=== PATIENT | female | born 1975 | race Caucasian/White ===

== ENCOUNTER 2020-12-18 12:18 | Inpatient (IN) | payer BC ==
[~2020-12-18] VITALS: Ht 165.1 cm; Wt 95.5 kg
[~2020-12-18 12:18] MED LIST: LIDOcaine 2% 5ml jelly ONE; etomidate 2mg/ml inj. ONE; rocuronium 10mg/ml inj IV ONE; sod chloride 0.9% 10ml flush syringe IV ONE
[2020-12-18] MEDS ORDERED: dexamethasone inj 8 MG in normal saline 50ml IV soln 50 ML IV STA (12:32)
[2020-12-18] MEDS ORDERED: ALBUTEROL INHALER 1 PUFF/90 MCG INHALER IH PRN ×2 (12:35→14:45)
[2020-12-18] MEDS ORDERED: normal saline 1000ML IV soln IV ONE (12:35)
[2020-12-18] MEDS ORDERED: CefTRIAXone 2gm/D5W 50ml BAG 50 ML IV ONE (12:35)
[2020-12-18 12:57] LABS: ABG BASE EXCESS -1.2 mmol/L (-2.0-2.0); ABG OXYGEN SATURATION 95.2 % (94-97); ABG PCO2 (T) 32.7 mmHg (32.0-45.0); ABG PO2 (T) 76.4 mmHg (75.0-100.0); ALLEN'S TEST POSITIVE; FCOHb 0.4 % (0.0-3.9); FLOW 4 L/min; FMetHb 0.1 % (0.0-1.5); FO2Hb 94.7 % (94-97); PATIENT TEMPERATURE 37.1; TOTAL HEMOGLOBIN 13.7 G/dl (12.0-16.0)
--- NOTE | 2020-12-18 13:29 | NUR ---
CHOLO OBTAINED AND RESULTS GIVEN TO MEE STERN. PER JARRED Addendum: 12/18/20 at 1330 by SDAY PER JARRED, GIVE ALBUTEROL MDI. POST TX TURN PT DOWN TO RA TO ASSESS OXYGENATION. PT TURNED DOWN TO RA WITH SPO2 FROM 90-92%. PLACED BACK ON 2LPM PRIOR TO LEAVING ROOM. PT SPO2 IS 92% ON 2LPM. PT TOLERATED TX WELL. NO SIGNS OF DISTRESS.
[2020-12-18 13:45] LABS: BASOPHILS % (AUTO) 0.2 % (0-1); EOSINOPHILS % (AUTO) 0 % (0-6); HEMATOCRIT 38.5 % (35.0-45.0); HEMOGLOBIN 13.1 g/dl (12.0-16.0); LYMPHOCYTES # (AUTO) 0.3 X10'3 (1.1-4.8); MEAN CORPUSCULAR HEMOGLOBIN 30.4 PG (27.0-31.0); MEAN CORPUSCULAR VOLUME 89.4 FL (78-98); MEAN PLATELET VOLUME 8.3 FL (7.4-10.4); MONOCYTES # (AUTO) 0.3 X10'3 (0-0.9); MONOCYTES % (AUTO) 4.7 % (2-12); NEUTROPHILS # (AUTO) 5.8 X10'3 (1.8-7.7); NEUTROPHILS % (AUTO) 91.1 % (42-75); PLATELET COUNT 189 X10'3 (140-440); RED CELL DISTRIBUTION WIDTH 14.6 % (11.5-14.5); WHITE BLOOD COUNT 6.4 X10'3 (4.5-11.0)
[2020-12-18 13:56] LABS: ALANINE AMINOTRANSFERASE 32 U/L (12-78); ALBUMIN 2.5 G/DL (3.4-5.0); ALBUMIN/GLOBULIN RATIO 0.6 (1.1-1.5); ALKALINE PHOSPHATASE 59 IU/L (46-116); ANION GAP 12 (8-16); ASPARTATE AMINO TRANSFERASE 31 U/L (10-37); BILIRUBIN,TOTAL 0.3 MG/DL (0.1-1.0); BLOOD UREA NITROGEN 8 MG/DL (7-18); BUN/CREATININE RATIO 12.1 (6.6-38.0); CALCIUM 7.6 MG/DL (8.5-10.1); CHLORIDE 101 MMOL/L (99-107); CREATININE 0.66 MG/DL (0.40-0.90); GLUCOSE 129 MG/DL (70-104); POTASSIUM 3.2 MMOL/L (3.5-5.1); SODIUM 135 MMOL/L (135-145); TOTAL CARBON DIOXIDE 21.8 MMOL/L (24-32); TOTAL PROTEIN 6.6 G/DL (6.4-8.2); eGFR > 90 ML/MIN
[2020-12-18 14:09] LABS: C-REACTIVE PROTEIN 9.54 MG/DL (0.0-0.5); FERRITIN 173 NG/ML (8-252)
[2020-12-18] MEDS ORDERED: proCHLORperazine 10 MG/2 ml inj IV ONE (14:10)
[2020-12-18] MEDS ORDERED: ketorolac trometh. 30mg/ml inj. IV ONE (14:10)
[2020-12-18] MEDS ORDERED: LORazepam 2 mg/ml vial IV ONE (14:10)
--- NOTE | 2020-12-18 14:43 | NUR ---
PT UP TO BEDSIDE COMMODE, SP02 DECREASED TO 86-92% ON RA. PATIENT HELPED BACK TO BED AND 2L NC PLACED. JARRED COLBERT
[2020-12-18] MEDS ORDERED: magnesium 4gm in 100ml NS 100 ML IV PRN (14:45)
[2020-12-18] MEDS ORDERED: potassium Cl 40MEQ/1/2NS 520ml 520 ML IV PRN ×2 (14:45)
[2020-12-18] MEDS ORDERED: magnesium 2GM in 50ml NS 50 ML IV PRN (14:45)
[2020-12-18] MEDS ORDERED: magnesium hydroxide 30ml (MOM) UD suspension PO PRN (14:45)
[2020-12-18] MEDS ORDERED: HYDROcodone/acetaminophen 10/325mg tab PO PRN (14:45)
[2020-12-18] MEDS ORDERED: potassium Cl 20 mEq SR tablet PO PRN (14:45)
[2020-12-18] MEDS ORDERED: REMDESIVIR (EUA) 100mg inj. 200 MG in normal saline 100ml IV soln 100 ML IV ONE (14:45)
[2020-12-18] MEDS ORDERED: acetaminophen 325mg tablet PO PRN ×2 (14:45)
[2020-12-18] MEDS ORDERED: mag hydrox/Alum hydrox/simeth 30ml oral suspension PO PRN (14:45)
[2020-12-18] MEDS: normal saline 1000ml 1,000 ML IV SCH ×2 (15:00→17:12)
[2020-12-18 15:20] LABS: D-DIMER 0.41 MG/L FEU (0-0.50)
[2020-12-18] MEDS ORDERED: BACL20TA7 PO (15:56)
[2020-12-18] MEDS ORDERED: CYCL-1 PO (15:56)
[2020-12-18] MEDS ORDERED: TOPI25TA49 PO (15:56)
[2020-12-18] MEDS ORDERED: DULO60CA65 PO (15:56)
[2020-12-18] MEDS ORDERED: ZOLM5TAB PO (15:56)
[2020-12-18] MEDS ORDERED: VALA500T41 PO (15:56)
[2020-12-18] MEDS ORDERED: GALC120P SQ (15:56)
[2020-12-18] MEDS ORDERED: BUPR300T86 PO (15:56)
[2020-12-18] MEDS ORDERED: cyclobenzaprine 10mg tablet PO PRN (16:25)
[2020-12-18] MEDS ORDERED: SUMAtriptan 25 MG tablet PO PRN (16:25)
[2020-12-18] MEDS ORDERED: baclofen 10mg tablet PO PRN (16:25)
--- NOTE | 2020-12-18 17:07 | NUR ---
received pt via karly to 341 placed in contact and airborne ISo fo +covid. report received from Luz Maria in ED. Call light in reach, bed low.
[2020-12-18 17:42] VITALS: BP 115/60
--- NOTE | 2020-12-18 18:37 | NUR ---
Problems reprioritized. Patient report given, questions answered & plan of care reviewed with LURDES Monson.
--- NOTE | 2020-12-18 18:39 | NUR ---
Patient in room [facility] 341. I have received report from Michelle CHATMAN and had the opportunity to ask questions and assume patient care.
[2020-12-18] MEDS: topiramate 100mg tablet PO SCH (19:47)
[2020-12-18] MEDS: K and/or MAG REPLACEMENT MC SCH (19:48)
[2020-12-18 20:00] VITALS: BP 117/72
[2020-12-18] MEDS ORDERED: enoxaparin 40mg/0.4ml syringe SQ SCH (20:00)
[2020-12-18] MEDS: potassium Cl 20 mEq SR tablet PO PRN (20:04)
[2020-12-19] VITALS (19 sets, daily range): BP systolic 91–125; BP diastolic 54–72
[2020-12-19] MEDS: potassium Cl 20 mEq SR tablet PO PRN ×4 (02:22→20:42)
[2020-12-19] MEDS: ondansetron/PF 4mg/2ml inj IV PRN (02:25)
--- NOTE | 2020-12-19 02:54 | NUR ---
Pt placed on salter high flow nasal cannula at 15lpm. Spo2 improved to 91%. MDI given by Will cont to monitor pt Addendum: 12/19/20 at 0254 by Gladys Guajardo RT Amended: Links added.
[2020-12-19 06:06] LABS: BASOPHILS % (AUTO) 0.1 % (0-1); EOSINOPHILS % (AUTO) 0 % (0-6); HEMATOCRIT 34.3 % (35.0-45.0); HEMOGLOBIN 11.5 g/dl (12.0-16.0); LYMPHOCYTES # (AUTO) 0.3 X10'3 (1.1-4.8); LYMPHOCYTES % (AUTO) 3.8 % (21-51); MEAN CORPUSCULAR HEMOGLOBIN 30.5 PG (27.0-31.0); MEAN CORPUSCULAR HGB CONC 33.6 g/dL (33.0-36.5); MEAN CORPUSCULAR VOLUME 90.7 FL (78-98); MEAN PLATELET VOLUME 8.6 FL (7.4-10.4); MONOCYTES # (AUTO) 0.2 X10'3 (0-0.9); MONOCYTES % (AUTO) 3.5 % (2-12); NEUTROPHILS # (AUTO) 6.3 X10'3 (1.8-7.7); NEUTROPHILS % (AUTO) 92.6 % (42-75); PLATELET COUNT 198 X10'3 (140-440); RED BLOOD COUNT 3.79 X10'6 (4.20-5.60); RED CELL DISTRIBUTION WIDTH 14.6 % (11.5-14.5); WHITE BLOOD COUNT 6.8 X10'3 (4.5-11.0)
[2020-12-19 06:14] LABS: D-DIMER 0.74 MG/L FEU (0-0.50)
[2020-12-19 06:24] LABS: ALANINE AMINOTRANSFERASE 27 U/L (12-78); ALBUMIN/GLOBULIN RATIO 0.6 (1.1-1.5); ALKALINE PHOSPHATASE 51 IU/L (46-116); ANION GAP 8 (8-16); ASPARTATE AMINO TRANSFERASE 31 U/L (10-37); BILIRUBIN,TOTAL 0.2 MG/DL (0.1-1.0); BLOOD UREA NITROGEN 11 MG/DL (7-18); BUN/CREATININE RATIO 15.1 (6.6-38.0); C-REACTIVE PROTEIN 10.03 MG/DL (0.0-0.5); CALCIUM 6.9 MG/DL (8.5-10.1); CHLORIDE 110 MMOL/L (99-107); CREATININE 0.73 MG/DL (0.40-0.90); GLUCOSE 128 MG/DL (70-104); MAGNESIUM 1.8 MG/DL (1.5-2.4); POTASSIUM 3.3 MMOL/L (3.5-5.1); SODIUM 140 MMOL/L (135-145); TOTAL CARBON DIOXIDE 22.4 MMOL/L (24-32); TOTAL PROTEIN 5.6 G/DL (6.4-8.2); eGFR 87 ML/MIN
--- NOTE | 2020-12-19 06:33 | NUR ---
Problems reprioritized. Patient report given, questions answered & plan of care reviewed with Ashley CHATMAN.
--- NOTE | 2020-12-19 07:10 | NUR ---
PAGER ID: [phone] MESSAGE: Nabil Carolyn 341 Desating to low and mid 80s on 15L via salter. Already readjusted, reassessed, and used inhaler. CXR, and ABG ordered. placing on tele. Tachycardia sustained overnight in 110. Ashley [id number]
--- NOTE | 2020-12-19 07:12 | NUR ---
SHELL PAGED. NEVIN paged. RESPIRATORY AND RADIOLOGY paged.
[2020-12-19] MEDS ORDERED: furosemide 40mg/4ml inj ONE (07:20)
[2020-12-19] MEDS ORDERED: furosemide 40mg/4ml inj IV ONE (07:20)
--- NOTE | 2020-12-19 07:28 | NUR ---
Took orders for Ashley scott RN from Dr Yuan that is her on the unit. Received orders for Harding Catheter, Stat ABG, Patient to be placed on Bipap RT to do settings. Lasix 40 mg IV x1 Transfer patient to [facility] on Telemetry. advised Rapid response RN Mindy of all new orders placed in chart.
--- NOTE | 2020-12-19 07:30 | NUR ---
During Rapid, fluids stopped per Roback telephone order. 40mg IV Lasix administered. VS monitored and pt. stayed on cont. pulse oximetry. Primary RN, ICU cutter apprentice hand, RT present. RT placed pt. on a non-rebreather mask at 15 LPM as well as 15LPM via salter. Received directions from surgical tank charger and nursing housekeeping aid via telephone that pt. is to be transferred to ICU room 2047B and placed on telemetry. Pt. belongings gathered and placed on bed. Pt. prepared for transfer with 2 02 tanks. Called with room telephone to notify of transfer. Transferred to ICU with 2 staff members escorting pt. via bed. Medication and chart transferred with pt.
[2020-12-19 07:43] LABS: ABG BASE EXCESS -3.2 mmol/L (-2.0-2.0); ABG HCO3 20.7 mmol/L (22.0-26.0); ABG OXYGEN SATURATION 84.8 % (94-97); ABG PCO2 (T) 33.5 mmHg (32.0-45.0); ABG PO2 (T) 47.7 mmHg (75.0-100.0); ALLEN'S TEST POSITIVE; FCOHb 0.3 % (0.0-3.9); FLOW 15 L/min; FMetHb 0.2 % (0.0-1.5); FO2Hb 84.4 % (94-97)
[2020-12-19] MEDS ORDERED: DEXAMETHASONE 6 MG TABLET PO SCH (08:00)
[2020-12-19] MEDS: K and/or MAG REPLACEMENT MC SCH ×2 (08:00→18:11)
--- NOTE | 2020-12-19 08:10 | NUR ---
Pt. transferred to ICU room 2046 and placed on heart monitor. made aware of transfer. Report given to receiving primary RN.
[2020-12-19] MEDS: methylPREDNISolone sod succ/PF 40mg inj. IV SCH ×3 (09:04→23:08)
[2020-12-19] MEDS: duloxetine 30mg CAPSULE.DR PO SCH (09:04)
[2020-12-19] MEDS: buPROPion SR 150mg tablet PO SCH ×2 (09:04→20:42)
[2020-12-19] MEDS: REMDESIVIR (EUA) 100mg inj. 100 MG in normal saline 100ml IV soln 100 ML IV SCH (09:06)
[2020-12-19] MEDS: valacyclovir 500mg tablet PO SCH (09:06)
[2020-12-19] MEDS: normal saline 1000ml 1,000 ML IV SCH (09:14)
[2020-12-19] MEDS: topiramate 100mg tablet PO SCH ×2 (10:00→20:43)
[2020-12-19] MEDS: pantoprazole 40mg Tablet.DR PO SCH (12:08)
[2020-12-19] MEDS ORDERED: LIDOcaine 2% 10ml TOPICAL JELLY (Urojet) TP ONE (15:30)
--- NOTE | 2020-12-19 18:06 | NUR ---
Problems reprioritized. Patient report given, questions answered & plan of care reviewed with
--- NOTE | 2020-12-19 18:10 | NUR ---
Patient in room ICU 2046. I have received report from FELICITAS CHATMAN and had the opportunity to ask questions and assume patient care.
--- NOTE | 2020-12-19 19:55 | NUR ---
Had (RT therapist Ez) come and assess pt since her respirations were in the low to high 40's
[2020-12-19] MEDS: furosemide 40mg/4ml inj IV SCH (20:42)
[2020-12-19] MEDS: enoxaparin 40mg/0.4ml syringe SQ SCH (20:42)
--- NOTE | 2020-12-19 20:59 | NUR ---
Attempted to to call Dr Hylton, no answer and 's mailbox was full
--- NOTE | 2020-12-19 21:02 | NUR ---
attempted to call dr nguyen a second time no answer and mailbox was full
--- NOTE | 2020-12-19 21:15 | NUR ---
notified dr nguyen and got order for ativan for pt
[2020-12-19] MEDS ORDERED: LORazepam 2 mg/ml vial IV ONE (21:20)
--- NOTE | 2020-12-19 21:55 | NUR ---
administered Ativan and educated patient that that she needs to try and lay in the prone position. Pt rolled her eyes and said is was difficult for her to lay in that position. Convinced pt to atleast start laying toward her side and try to progress aiming toward the prone position to help with oxygenation and brought extra pillows to help with support. Pt's glucose was rechecked and she was a 184, 181 prior to dinner. Brought this up the devulcanizer charger and mentioned that she is not a diabetic but is on steroids. tractor mechanic apprentice mentioned to recheck her in the morning and start her then since she is not critical now. Also, per policy it mentions "During the night, if 2 consecutive Blood Sugars are above 160mg/dL, the patient is stable, and the values are not critical wait until the AM to contact the attending physician to initiate the SubQ insulin protocol."
[2020-12-20] VITALS (23 sets, daily range): BP systolic 93–122; BP diastolic 39–77
--- NOTE | 2020-12-20 04:54 | NUR ---
rt came in to assess pt and dropped pt to 95% FI02 and 50 Liters now
[2020-12-20 05:44] LABS: BASOPHILS % (AUTO) 0.1 % (0-1); EOSINOPHILS % (AUTO) 0 % (0-6); HEMATOCRIT 37.1 % (35.0-45.0); HEMOGLOBIN 12.6 g/dl (12.0-16.0); LYMPHOCYTES # (AUTO) 0.3 X10'3 (1.1-4.8); LYMPHOCYTES % (AUTO) 3.2 % (21-51); MEAN CORPUSCULAR HEMOGLOBIN 30.3 PG (27.0-31.0); MEAN CORPUSCULAR HGB CONC 34.1 g/dL (33.0-36.5); MEAN CORPUSCULAR VOLUME 88.9 FL (78-98); MEAN PLATELET VOLUME 8.2 FL (7.4-10.4); MONOCYTES # (AUTO) 0.4 X10'3 (0-0.9); MONOCYTES % (AUTO) 3.8 % (2-12); NEUTROPHILS # (AUTO) 9.5 X10'3 (1.8-7.7); NEUTROPHILS % (AUTO) 92.9 % (42-75); PLATELET COUNT 262 X10'3 (140-440); RED BLOOD COUNT 4.17 X10'6 (4.20-5.60); RED CELL DISTRIBUTION WIDTH 14.5 % (11.5-14.5); WHITE BLOOD COUNT 10.2 X10'3 (4.5-11.0)
[2020-12-20 05:51] LABS: D-DIMER 1.12 MG/L FEU (0-0.50)
[2020-12-20 05:55] LABS: ALANINE AMINOTRANSFERASE 27 U/L (12-78); ALBUMIN 2.2 G/DL (3.4-5.0); ALBUMIN/GLOBULIN RATIO 0.6 (1.1-1.5); ALKALINE PHOSPHATASE 60 IU/L (46-116); ANION GAP 11 (8-16); ASPARTATE AMINO TRANSFERASE 43 U/L (10-37); BILIRUBIN,TOTAL 0.2 MG/DL (0.1-1.0); BLOOD UREA NITROGEN 17 MG/DL (7-18); BUN/CREATININE RATIO 25.8 (6.6-38.0); C-REACTIVE PROTEIN 9.73 MG/DL (0.0-0.5); CALCIUM 7.8 MG/DL (8.5-10.1); CHLORIDE 107 MMOL/L (99-107); CREATININE 0.66 MG/DL (0.40-0.90); GLUCOSE 151 MG/DL (70-104); MAGNESIUM 2.2 MG/DL (1.5-2.4); POTASSIUM 3.9 MMOL/L (3.5-5.1); SODIUM 142 MMOL/L (135-145); TOTAL CARBON DIOXIDE 23.8 MMOL/L (24-32); TOTAL PROTEIN 6.2 G/DL (6.4-8.2); eGFR > 90 ML/MIN
--- NOTE | 2020-12-20 06:04 | NUR ---
Problems reprioritized. Patient report given, questions answered & plan of care reviewed with FELICITAS CHATMAN.
[2020-12-20] MEDS: REMDESIVIR (EUA) 100mg inj. 100 MG in normal saline 100ml IV soln 100 ML IV SCH (08:01)
[2020-12-20] MEDS: furosemide 40mg/4ml inj IV SCH ×2 (08:02→19:32)
[2020-12-20] MEDS: duloxetine 30mg CAPSULE.DR PO SCH (08:03)
[2020-12-20] MEDS: pantoprazole 40mg Tablet.DR PO SCH (08:03)
[2020-12-20] MEDS: methylPREDNISolone sod succ/PF 40mg inj. IV SCH (08:03)
[2020-12-20] MEDS: buPROPion SR 150mg tablet PO SCH ×2 (08:03→19:32)
[2020-12-20] MEDS: enoxaparin 40mg/0.4ml syringe SQ SCH ×2 (08:03→19:32)
[2020-12-20] MEDS: valacyclovir 500mg tablet PO SCH (08:03)
[2020-12-20] MEDS: K and/or MAG REPLACEMENT MC SCH ×2 (08:28→18:28)
[2020-12-20] MEDS: topiramate 100mg tablet PO SCH ×2 (08:47→19:32)
[2020-12-20] MEDS ORDERED: ALPRAZolam 0.25mg tablet PO PRN (10:30)
[2020-12-20] MEDS ORDERED: glucagon, human recombinant 1mg kit SUBCUT PRN (10:30)
[2020-12-20] MEDS ORDERED: dextrose 50%-water 50ml dispensing syringe IV PRN ×2 (10:30)
[2020-12-20] MEDS ORDERED: insulin Lispro (HumaLOG) vial - multi-dose SQ SCH (10:30)
[2020-12-20] MEDS ORDERED: dextrose ORAL solution 15 GM/59 ML bottle PO PRN ×2 (10:30)
[2020-12-20] MEDS ORDERED: MESSAGE TO PHARMACY PO ONE (10:30)
[2020-12-20] MEDS: HYDROcodone/acetaminophen 5mg/325mg tablet PO PRN (12:04)
--- NOTE | 2020-12-20 12:45 | NUR ---
Pt refuses prone position, Explained the benefits and importance of prone positioning, but pt still not cooperative. Informed Dr. Jimenez and charge nurse.
--- NOTE | 2020-12-20 13:30 | NUR ---
Noted that pt refusing most meals with up to 50% PO intake at breakfast this morning, still not meeting estimated nutrient needs. D/w MD at critical care rounds recommendation for Ensure Enlive TID. LBM 12/18 with PRN bowel care available. D/w dietary to send prune juice with next meal to assist with bowel regularity. Will continue to follow. Addendum: 12/20/20 at [address] Amended: Links added.
[2020-12-20] MEDS: methylPREDNISolone sod succ 125mg/2ml vial IV SCH ×2 (17:16→22:54)
--- NOTE | 2020-12-20 17:38 | NUR ---
Pt's blood sugar 161 at lunch time, did not administer any insulin because pt did not eat any lunch.
[2020-12-20] MEDS: lactose-reduced food (Ensure Enlive) - 237ml bottle PO SCH (18:00)
--- NOTE | 2020-12-20 18:04 | NUR ---
Patient in room ICU 2046. I have received report from FELICITAS CHATMAN and had the opportunity to ask questions and assume patient care.
--- NOTE | 2020-12-20 18:09 | NUR ---
Problems reprioritized. Patient report given, questions answered & plan of care reviewed with LURDES Price.
--- NOTE | 2020-12-20 19:51 | NUR ---
Evening glucose 188, holding insulin b/c pt did not eat any of her dinner
--- NOTE | 2020-12-20 20:00 | NUR ---
notified Dr. Hylton to get something for sleep for pt tonight. md said he will review chart and will put something on.
[2020-12-20] MEDS: insulin glargine (Lantus) pen - multi-dose SQ SCH (21:00)
[2020-12-20] MEDS: temazepam 15mg capsule PO PRN (21:11)
[2020-12-21] VITALS (24 sets, daily range): BP systolic 104–141; BP diastolic 50–80
--- NOTE | 2020-12-21 01:01 | NUR ---
olvin Hui (Resp. Therapist) come and assess pt, pt oxygen sat sustained in 84-86 range
[2020-12-21 04:43] LABS: BASOPHILS % (AUTO) 0 % (0-1); D-DIMER 0.96 MG/L FEU (0-0.50); EOSINOPHILS % (AUTO) 0 % (0-6); HEMATOCRIT 38.6 % (35.0-45.0); HEMOGLOBIN 12.8 g/dl (12.0-16.0); LYMPHOCYTES # (AUTO) 0.2 X10'3 (1.1-4.8); LYMPHOCYTES % (AUTO) 1.9 % (21-51); MEAN CORPUSCULAR HEMOGLOBIN 30.1 PG (27.0-31.0); MEAN CORPUSCULAR HGB CONC 33.3 g/dL (33.0-36.5); MEAN CORPUSCULAR VOLUME 90.4 FL (78-98); MEAN PLATELET VOLUME 8.7 FL (7.4-10.4); MONOCYTES # (AUTO) 0.5 X10'3 (0-0.9); MONOCYTES % (AUTO) 4.1 % (2-12); NEUTROPHILS # (AUTO) 11.5 X10'3 (1.8-7.7); PLATELET COUNT 317 X10'3 (140-440); RED BLOOD COUNT 4.27 X10'6 (4.20-5.60); RED CELL DISTRIBUTION WIDTH 14.6 % (11.5-14.5); WHITE BLOOD COUNT 12.3 X10'3 (4.5-11.0)
[2020-12-21 04:49] LABS: ALANINE AMINOTRANSFERASE 25 U/L (12-78); ALBUMIN 2.3 G/DL (3.4-5.0); ALBUMIN/GLOBULIN RATIO 0.5 (1.1-1.5); ALKALINE PHOSPHATASE 70 IU/L (46-116); ANION GAP 8 (8-16); ASPARTATE AMINO TRANSFERASE 33 U/L (10-37); BILIRUBIN,TOTAL 0.3 MG/DL (0.1-1.0); BLOOD UREA NITROGEN 23 MG/DL (7-18); BUN/CREATININE RATIO 31.5 (6.6-38.0); C-REACTIVE PROTEIN 5.84 MG/DL (0.0-0.5); CALCIUM 7.9 MG/DL (8.5-10.1); CHLORIDE 106 MMOL/L (99-107); CREATININE 0.73 MG/DL (0.40-0.90); GLUCOSE 158 MG/DL (70-104); MAGNESIUM 2.4 MG/DL (1.5-2.4); POTASSIUM 3.8 MMOL/L (3.5-5.1); SODIUM 141 MMOL/L (135-145); TOTAL CARBON DIOXIDE 27.5 MMOL/L (24-32); TOTAL PROTEIN 6.5 G/DL (6.4-8.2); eGFR 87 ML/MIN
--- NOTE | 2020-12-21 06:13 | NUR ---
Problems reprioritized. Patient report given, questions answered & plan of care reviewed with Nos RN.
--- NOTE | 2020-12-21 07:03 | NUR ---
Received call from Dr. Pastor, chest x-ray shows pneumo to R-mediastinum and R-neck. Informed Dr. Costello and Mindy the charge nurse. No new orders.
[2020-12-21] MEDS: duloxetine 30mg CAPSULE.DR PO SCH (07:39)
[2020-12-21] MEDS: REMDESIVIR (EUA) 100mg inj. 100 MG in normal saline 100ml IV soln 100 ML IV SCH (07:40)
[2020-12-21] MEDS: valacyclovir 500mg tablet PO SCH (07:40)
[2020-12-21] MEDS: topiramate 100mg tablet PO SCH ×2 (07:40→19:37)
[2020-12-21] MEDS: buPROPion SR 150mg tablet PO SCH ×2 (07:40→19:37)
[2020-12-21] MEDS: pantoprazole 40mg Tablet.DR PO SCH (07:40)
[2020-12-21] MEDS: methylPREDNISolone sod succ 125mg/2ml vial IV SCH ×3 (07:40→23:46)
[2020-12-21] MEDS: furosemide 40mg/4ml inj IV SCH (07:40)
[2020-12-21] MEDS: enoxaparin 40mg/0.4ml syringe SQ SCH ×2 (07:41→19:37)
[2020-12-21] MEDS: lactose-reduced food (Ensure Enlive) - 237ml bottle PO SCH ×3 (07:41→17:49)
[2020-12-21] MEDS: K and/or MAG REPLACEMENT MC SCH ×2 (08:06→19:46)
[2020-12-21] MEDS: diazepam 2mg tablet PO PRN ×2 (09:57→19:37)
[2020-12-21] MEDS: ondansetron/PF 4mg/2ml inj IV PRN (17:48)
[2020-12-21] MEDS: HYDROcodone/acetaminophen 5mg/325mg tablet PO PRN (17:49)
--- NOTE | 2020-12-21 18:15 | NUR ---
Patient in room ICU 2046. I have received report from Susan CHATMAN and had the opportunity to ask questions and assume patient care.
--- NOTE | 2020-12-21 18:21 | NUR ---
Problems reprioritized. Patient report given, questions answered & plan of care reviewed with Carrie.
--- NOTE | 2020-12-21 18:22 | NUR ---
Spoke with pt and her , insisted the importance of prone positioning and need for nutrition as pt has been refusing to prone and eat her meals. Also encourage osiel-care and osiel hygiene along with regular tempon change.
--- NOTE | 2020-12-21 19:30 | NUR ---
Continued to encourage pt to prone or lay on side. Assisted pt into prone position with lots of pillows for comfort. Pt was satting 92-95%. Remained prone for approximately 40 minutes.
[2020-12-21] MEDS: insulin glargine (Lantus) pen - multi-dose SQ SCH (21:00)
[2020-12-21] MEDS: temazepam 15mg capsule PO PRN (21:02)
--- NOTE | 2020-12-21 22:00 | NUR ---
Assisted pt into right side-lying position. Many pillows used for comfort. Pt is satting 95-99%. Will continue to monitor freq.
[2020-12-22] VITALS (12 sets, daily range): BP systolic 101–200; BP diastolic 54–99
[2020-12-22] MEDS: ondansetron/PF 4mg/2ml inj IV PRN (05:01)
[2020-12-22 06:06] LABS: BASOPHILS % (AUTO) 0 % (0-1); EOSINOPHILS % (AUTO) 0 % (0-6); HEMATOCRIT 39.6 % (35.0-45.0); HEMOGLOBIN 13.3 g/dl (12.0-16.0); LYMPHOCYTES # (AUTO) 0.2 X10'3 (1.1-4.8); LYMPHOCYTES % (AUTO) 1.5 % (21-51); MEAN CORPUSCULAR HEMOGLOBIN 30.1 PG (27.0-31.0); MEAN CORPUSCULAR HGB CONC 33.5 g/dL (33.0-36.5); MEAN CORPUSCULAR VOLUME 89.9 FL (78-98); MEAN PLATELET VOLUME 8.4 FL (7.4-10.4); MONOCYTES # (AUTO) 0.7 X10'3 (0-0.9); NEUTROPHILS # (AUTO) 13.3 X10'3 (1.8-7.7); NEUTROPHILS % (AUTO) 93.5 % (42-75); PLATELET COUNT 377 X10'3 (140-440); RED CELL DISTRIBUTION WIDTH 14.3 % (11.5-14.5); WHITE BLOOD COUNT 14.2 X10'3 (4.5-11.0)
[2020-12-22 06:25] LABS: ALANINE AMINOTRANSFERASE 28 U/L (12-78); ALBUMIN 2.4 G/DL (3.4-5.0); ALBUMIN/GLOBULIN RATIO 0.6 (1.1-1.5); ALKALINE PHOSPHATASE 87 IU/L (46-116); ANION GAP 11 (8-16); ASPARTATE AMINO TRANSFERASE 34 U/L (10-37); BILIRUBIN,TOTAL 0.4 MG/DL (0.1-1.0); BLOOD UREA NITROGEN 23 MG/DL (7-18); BUN/CREATININE RATIO 30.3 (6.6-38.0); C-REACTIVE PROTEIN 5.43 MG/DL (0.0-0.5); CALCIUM 8.2 MG/DL (8.5-10.1); CHLORIDE 104 MMOL/L (99-107); CREATININE 0.76 MG/DL (0.40-0.90); D-DIMER 2.22 MG/L FEU (0-0.50); GLUCOSE 159 MG/DL (70-104); MAGNESIUM 2.4 MG/DL (1.5-2.4); SODIUM 139 MMOL/L (135-145); TOTAL CARBON DIOXIDE 23.8 MMOL/L (24-32); TOTAL PROTEIN 6.6 G/DL (6.4-8.2); eGFR 83 ML/MIN
--- NOTE | 2020-12-22 06:26 | NUR ---
Problems reprioritized. Patient report given, questions answered & plan of care reviewed with Julieta CHATMAN.
[2020-12-22] MEDS: pantoprazole 40mg Tablet.DR PO SCH (07:30)
[2020-12-22] MEDS: valacyclovir 500mg tablet PO SCH (08:00)
[2020-12-22] MEDS: enoxaparin 40mg/0.4ml syringe SQ SCH (08:00)
[2020-12-22] MEDS: topiramate 100mg tablet PO SCH (08:00)
[2020-12-22] MEDS: K and/or MAG REPLACEMENT MC SCH (08:00)
[2020-12-22] MEDS: duloxetine 30mg CAPSULE.DR PO SCH (08:00)
[2020-12-22] MEDS: buPROPion SR 150mg tablet PO SCH (08:00)
[2020-12-22] MEDS: lactose-reduced food (Ensure Enlive) - 237ml bottle PO SCH (08:00)
[2020-12-22] MEDS ORDERED: furosemide 40mg/4ml inj IV SCH (08:00)
[2020-12-22] MEDS: methylPREDNISolone sod succ 125mg/2ml vial IV SCH (08:38)
[2020-12-22] MEDS: REMDESIVIR (EUA) 100mg inj. 100 MG in normal saline 100ml IV soln 100 ML IV SCH (08:38)
[2020-12-22] MEDS ORDERED: midazolam 1 mg/ML 2ml injection ONE (09:41)
[2020-12-22] MEDS ORDERED: propofol 1000mg/100ml bottle 100 ML IV ONE (10:04)
[2020-12-22 10:25] LABS: ABG BASE EXCESS -9.2 mmol/L (-2.0-2.0); ABG HCO3 19.3 mmol/L (22.0-26.0); ABG OXYGEN SATURATION 85.1 % (94-97); ABG PCO2 (T) 51.2 mmHg (32.0-45.0); FCOHb 0.3 % (0.0-3.9); FMetHb 0.3 % (0.0-1.5); FO2Hb 84.6 % (94-97); PATIENT TEMPERATURE 36.8; PEEP 10 cm H2O; RESPIRATORY RATE 20 b/min; TIDAL VOLUME 575 mL; TOTAL HEMOGLOBIN 14.8 G/dl (12.0-16.0)
[2020-12-22] MEDS ORDERED: morphine 4 MG/ML inj SYRINge ONE (10:29)
--- NOTE | 2020-12-22 11:25 | NUR ---
6813 Dr. Costello spoke with pt and ( via phone). Decision was made to intubate and place bilat chest tubes. decision also made to transfer pt to [facility] 0954 pt intubated 1030 bilat chest tubes and right femoral art line placed
--- NOTE | 2020-12-22 12:35 | NUR ---
flight crew [employer] here report given. pt placed on their monitor, vent and IV pumps by their staff.
--- NOTE | 2020-12-22 14:00 | NUR ---
report called to [facility] medical ICU.
== END 2020-12-22 14:00 | disposition short-term general hospital (02) | DRG 208 ==
LOC: ER 12:19 → ED HOLD 14:43 → SUR 3N 17:12 → ICU 2S 12-19 08:20
PROVIDERS: ADMIT Family Medicine; ATTEND Family Medicine
PROC: XW033E5 Introduction of Remdesivir Anti-infective into Peripheral Vein, Percutaneous Approach, New Technology Group 5 (ICD-10-PCS; principal; 2020-12-18)
PROC: 5A0945A Assistance with Respiratory Ventilation, 24-96 Consecutive Hours, High Flow/Velocity Cannula (ICD-10-PCS; 2020-12-19)
PROC: 5A1935Z Respiratory Ventilation, Less than 24 Consecutive Hours (ICD-10-PCS; 2020-12-22)
PROC: 0BH17EZ Insertion of Endotracheal Airway into Trachea, Via Natural or Artificial Opening (ICD-10-PCS; 2020-12-22)
PROC: 0W9B30Z Drainage of Left Pleural Cavity with Drainage Device, Percutaneous Approach (ICD-10-PCS; 2020-12-22)
PROC: 0W9930Z Drainage of Right Pleural Cavity with Drainage Device, Percutaneous Approach (ICD-10-PCS; 2020-12-22)
PROC: 04HY32Z Insertion of Monitoring Device into Lower Artery, Percutaneous Approach (ICD-10-PCS; 2020-12-22)
DX: U07.1 COVID-19 (principal); J12.82 Pneumonia due to coronavirus disease 2019; J96.01 Acute respiratory failure with hypoxia; J93.9 Pneumothorax, unspecified; J93.82 Other air leak; J98.2 Interstitial emphysema; F32.9 Major depressive disorder, single episode, unspecified; G43.909 Migraine, unspecified, not intractable, without status migrainosus; M54.2 Cervicalgia; R00.0 Tachycardia, unspecified; E87.6 Hypokalemia; R79.82 Elevated C-reactive protein (CRP); R19.7 Diarrhea, unspecified; R63.0 Anorexia; Z68.35 Body mass index [BMI] 35.0-35.9, adult; Z82.49 Family history of ischemic heart disease and other diseases of the circulatory system; Z90.721 Acquired absence of ovaries, unilateral; Z98.51 Tubal ligation status; Z88.2 Allergy status to sulfonamides
CPT/HCPCS: 36415; 36600; 71045; 74018; 80053; 82728; 82803; 82948; 83605; 83735; 84145; 85018; 85025; 85379; 86140; 87040; 87081; 93005; 94002; 94640; 94760; 94799; 96365; 96366; 96368; 96375; 99291; G0378; J0696; J0780; J1100; J1650; J1815; J1885; J1940; J2060; J2250; J2270; J2405; J2704; J2920; J2930; J7030